=== PATIENT | male | born 1985 | race African-American/Black ===

== ENCOUNTER 2018-04-07 15:48 | Inpatient (IN) | payer OTHER ==
[2018-04-07 16:46] VITALS: BMI 19.2
--- NOTE | 2018-04-07 19:50 | HP ---
CIWA Score - CIWA Score Nausea/Vomitin-Mild Nausea/No Vomiting Muscle Tremors: 2 Anxiety: 2 Agitation: 2 Paroxysmal Sweats: 1-Minimal Palms Moist Orientation: 0-Oriented Tacttile Disturbances: 1-Very Mild Itch/Numbness Auditory Disturbances: 1-Very Mild Visual Disturbances: 1-Very Mild Sensitivity Headache: 1-Very Mild CIWA-Ar Total Score: 12 Admission ROS BHS - HPI Chief Complaint: WITHDRAWAL SYMPTOMS Allergies/Adverse Reactions: Allergies Allergy/AdvReac Type Severity Reaction Status Date / Time No Known Allergies Allergy Verified 04/07/18 19:17 History of Present Illness: 33 Y.O. MAN WITH A HISTORY OF ALCOHOL AND MARIJUANA DEPENDENCE IS HERE FOR DETOX. HE REPORTS HIS MOST RECENT DETOX WAS 2 YEARS AGO AT [facility]. HE ALSO HAS A HISTORY OF OPIOID DEPENDENCE. HE WAS PRESCRIBED SUBOXONE BUT REPORTS HE TAPERED HIMSELF OFF 2 WEEKS AGO. - Ebola screening Have you traveled outside of the country in the last 21 days: No Have you had contact with anyone from an Ebola affected area: No Have you been sick,other than usual withdrawal symptoms: No Do you have a fever: No - Review of Systems Constitutional: Chills, Unintentional Wgt. Loss EENT: reports: Blurred Vision, Double Vision Respiratory: reports: Cough, Shortness of Breath Cardiac: reports: No Symptoms Reported GI: reports: No Symptoms Reported : reports: No Symptoms Reported Musculoskeletal: reports: Back Pain Integumentary: reports: No Symptoms Reported Neuro: reports: Headache Endocrine: reports: No Symptoms Reported Hematology: reports: Anemia (WOLF) Psychiatric: reports: No Sypmtoms Reported, Anxious Other Systems: Reviewed and Negative Patient History - Patient Medical History Hx Anemia: Yes (WOLF ) Hx Asthma: No Hx Chronic Obstructive Pulmonary Disease (COPD): No Hx Cancer: No Hx Cardiac Disorders: No Hx Congestive Heart Failure: No Hx Hypertension: No Hx Hypercholesterolemia: Yes (TAKES OMEGA FISH OIL ) Hx Pacemaker: No HX Cerebrovascular Accident: No Hx Seizures: No Hx Dementia: No Hx Diabetes: No Hx Gastrointestinal Disorders: No Hx Liver Disease: No Hx Genitourinary Disorders: No Hx Sexually Transmitted Disorders: No Hx Renal Disease (ESRD): No Hx Thyroid Disease: No Hx Human Immunodeficiency Virus (HIV): No Hx Hepatitis C: No Hx Depression: Yes Hx Suicide Attempt: No Hx Bipolar Disorder: No Hx Schizophrenia: No - Patient Surgical History Past Surgical History: No Hx Neurologic Surgery: No Hx Cataract Extraction: No Hx Cardiac Surgery: No Hx Lung Surgery: No Hx Breast Surgery: No Hx Breast Biopsy: No Hx Abdominal Surgery: No Hx Appendectomy: No Hx Cholecystectomy: No Hx Genitourinary Surgery: No Hx Section: No Hx Orthopedic Surgery: No Anesthesia Reaction: No - PPD History Previous Implant?: Yes Documented Results: Negative w/o proof PPD to be Administered?: Yes - Reproductive History Patient is a Female of Child Bearing Age (11 -55 yrs old): No - Smoking Cessation Smoking history: Current every day smoker Have you smoked in the past 12 months: Yes Aproximately how many cigarettes per day: 10 Hx Chewing Tobacco Use: No Initiated information on smoking cessation: Yes 'Breaking Loose' booklet given: 04/07/18 - Substance & Tx. History Hx Alcohol Use: Yes Hx Substance Use: Yes Substance Use Type: Alcohol, Marijuana Hx Substance Use Treatment: Yes (DETOX: 2 YEARS AGO AT [facility] ) - Substances Abused Alcohol Route: Oral Frequency: Daily Amount used: liquor- 1 pint, beer- 1 six pack Age of first use: 14 Date of Last Use: 04/07/18 Marijuana/Hashish Route: Smoking Frequency: Daily Amount used: 1/4 oz Age of first use: 14 Date of Last Use: 04/07/18 Family Disease History - Family Disease History Family Disease History: Diabetes: Mother Admission Physical Exam S - Vital Signs Vital Signs: Vital Signs - 24 hr 04/07/18 16:44 Temperature 97.9 F Pulse Rate 90 Respiratory 18 Rate Blood Pressure 115/78 - Physical General Appearance: Yes: Irritable, Anxious HEENTM: Yes: Hearing grossly Normal, Normocephalic, Normal Voice Respiratory: Yes: Chest Non-Tender, Lungs Clear, Normal Breath Sounds, No Respiratory Distress, No Accessory Muscle Use Neck: Yes: Within Normal Limits Breast: Yes: Breast Exam Deferred Cardiology: Yes: Regular Rhythm, Regular Rate Abdominal: Yes: Normal Bowel Sounds, Non Tender Genitourinary: Yes: Other Back: Yes: Normal Inspection Musculoskeletal: Yes: full range of Motion Extremities: Yes: Normal Capillary Refill, Normal Inspection, Normal Range of Motion, Non-Tender Neurological: Yes: Alert, Normal Mood/Affect, Normal Response Integumentary: Yes: Normal Color, Dry, Warm Lymphatic: Yes: Within Normal Limits - Diagnostic (1) Alcohol dependence with uncomplicated withdrawal Current Visit: Yes Status: Chronic (2) Marijuana dependence Current Visit: Yes Status: Chronic (3) Nicotine dependence Current Visit: Yes Status: Chronic (4) Opioid dependence in remission Current Visit: Yes Status: Acute (5) Weight loss, unintentional Current Visit: Yes Status: Acute (6) WOLF (iron deficiency anemia) Current Visit: Yes Status: Chronic Cleared for Admission [facility] - Detox or Rehab [facility] Level of Care: Medically Managed Detox Regimen/Protocol: Librium S Breath Alcohol Content Breath Alcohol Content: 0 Urine Drug Screen - Results Drug Screen Negative: No Urine Drug Screen Results: THC-Marijuana
[2018-04-07] MEDS ORDERED: MAGNESIUM CITRATE 300 ML BOTTLE PO PRN (19:55)
[2018-04-07] MEDS ORDERED: NICOTINE POLACRILEX 2 MG GUM BC PRN (19:55)
[2018-04-07] MEDS ORDERED: chlordiazePOXIDE HCL 25 MG CAPSULE PO PRN (19:55)
[2018-04-07] MEDS ORDERED: MENTHOL/PHENOL 1 EACH UD MM PRN (19:55)
[2018-04-07] MEDS ORDERED: guaiFENesin/D-METHORPHAN HB 10 ML UNIT-DOSE CUPS PO PRN (19:55)
[2018-04-07] MEDS ORDERED: P-EPHED 60MG/TRIPROLIDI 2.5MG TABLET PO PRN (19:55)
[2018-04-07] MEDS ORDERED: ACETAMINOPHEN 325 MG TABLET (FP) PO PRN (19:55)
[2018-04-07] MEDS ORDERED: hydrOXYzine PAMOATE 50 MG CAPSULE (FP) PO PRN (19:55)
[2018-04-07] MEDS ORDERED: MAG HYDROX/AL HYDROX/SIMETH 30 ML UNIT-DOSE CUP PO PRN (19:55)
[2018-04-07] MEDS ORDERED: LOPERAMIDE HCL 2 MG CAPSULE PO PRN (19:55)
[2018-04-07] MEDS ORDERED: MAGNESIUM HYDROX 2400MG/30ML ORAL SUSPENSION 30 ML CUP PO PRN (19:55)
[2018-04-07] MEDS: THIAMINE HCL 100 MG TABLET (FP) PO SCH (21:18)
[2018-04-07] MEDS: chlordiazePOXIDE HCL 25 MG CAPSULE PO SCH (22:00)
[2018-04-07] MEDS ORDERED: MELATONIN 5 MG TABLETS PO PRN (22:00)
[2018-04-07 23:41] LABS: URINE APPEARANCE CLEAR; URINE BILIRUBIN NEGATIVE (<2.0 mg/dL); URINE COLOR LTYELLOW; URINE GLUCOSE (UA) NEGATIVE (NEGATIVE); URINE KETONE NEGATIVE (NEGATIVE); URINE LEUK ESTERASE NEGATIVE (NEGATIVE); URINE NITRITE NEGATIVE (NEGATIVE); URINE PROTEIN NEGATIVE (NEGATIVE); URINE UROBILINOGEN NEGATIVE mg/dL (0.2-1.0)
[2018-04-08] MEDS: chlordiazePOXIDE HCL 25 MG CAPSULE PO SCH ×4 (05:31→22:42)
--- NOTE | 2018-04-08 09:39 | EKG ---
Test Reason : Blood Pressure : / mmHG Vent. Rate : 063 BPM Atrial Rate : 063 BPM P-R Int : 108 ms QRS Dur : 088 ms QT Int : 404 ms P-R-T Axes : 061 085 071 degrees QTc Int : 413 ms SINUS RHYTHM WITH SHORT GA OTHERWISE NORMAL ECG NO PREVIOUS ECGS AVAILABLE Confirmed by VANCE GUILLORY, GABE ([id number]) on 04/08/2018 9:39:28 AM Referred By: Confirmed By:GABE WOODARD MD
[2018-04-08 10:06] LABS: HEMOGLOBIN 13.6 GM/dL (11.7-16.9); MCH 29.2 pg (25.7-33.7); MCHC 34.8 g/dl (32.0-35.9); MEAN PLT VOLUME 7.5 fl (7.5-11.1); PLATELET COUNT 343 K/MM3 (134-434); RBC 4.65 M/mm3 (4.00-5.60); RDW 15.3 % (11.9-15.9); WHITE BLOOD COUNT 5.6 K/mm3 (4.0-10.0)
[2018-04-08] MEDS: PRENATAL VITAMINS W/ FOLIC ACID TABLET (FP) PO SCH (10:08)
[2018-04-08] MEDS: NICOTINE 14 MG/24 HOURS TOPICAL PATCH TD SCH (10:08)
[2018-04-08 11:07] LABS: ALBUMIN 3.3 g/dl (3.4-5.0); ALK PHOS 121 U/L (45-117); ANION GAP 11 MMOL/L (8-16); BILIRUBIN,TOTAL 0.4 mg/dL (0.2-1); BLOOD UREA NITROGEN 11 mg/dL (7-18); CALCIUM 10.1 mg/dL (8.5-10.1); CHLORIDE 101 mmol/L (98-107); CO2 27 mmol/L (21-32); CREATININE 0.9 mg/dL (0.55-1.3); GLUCOSE,RANDOM 99 mg/dL (74-106); POTASSIUM 4.9 mmol/L (3.5-5.1); SGOT/AST 29 U/L (15-37); SGPT/ALT 33 U/L (13-61); SODIUM 140 mmol/L (136-145); TOT PROT 8.8 g/dl (6.4-8.2)
--- NOTE | 2018-04-08 11:24 | PN ---
[facility] CIWA - CIWA Score Nausea/Vomitin-No Nausea/No Vomiting Muscle Tremors: None Anxiety: 1-Mildly Anxious Agitation: 0-Normal Activity Paroxysmal Sweats: No Perspiration Orientation: 0-Oriented Tacttile Disturbances: 0-None Auditory Disturbances: 0-None Visual Disturbances: 0-None Headache: 0-None Present CIWA-Ar Total Score: 1 BHS Progress Note (SOAP) Subjective: Patient c/o mild anxiety. Objective: 04/08/18 11:22 Laboratory Tests 04/07/18 04/08/18 04/08/18 21:15 07:00 07:00 WBC 5.6 RBC 4.65 Hgb 13.6 Hct 39.0 MCV 84.0 MCH 29.2 MCHC 34.8 RDW 15.3 Plt Count 343 MPV 7.5 Sodium Potassium Chloride Carbon Dioxide Anion Gap BUN Creatinine Creat Clearance w eGFR Random Glucose Calcium Total Bilirubin AST ALT Alkaline Phosphatase Total Protein Albumin Urine Color Ltyellow Urine Appearance Clear Urine pH 5.0 Ur Specific [place] 1.013 Urine Protein Negative Urine Glucose (UA) Negative Urine Ketones Negative Urine Blood Negative Urine Nitrite Negative Urine Bilirubin Negative Urine Urobilinogen Negative Ur Leukocyte Esterase Negative RPR Titer HIV 1&2 Antibody Screen Negative HIV P24 Antigen Negative 04/08/18 04/08/18 07:00 07:00 WBC RBC Hgb Hct MCV MCH MCHC RDW Plt Count MPV Sodium 140 Potassium 4.9 Chloride 101 Carbon Dioxide 27 Anion Gap 11 BUN 11 Creatinine 0.9 Creat Clearance w eGFR > 60 Random Glucose 99 Calcium 10.1 Total Bilirubin 0.4 AST 29 ALT 33 Alkaline Phosphatase 121 H Total Protein 8.8 H Albumin 3.3 L Urine Color Urine Appearance Urine pH Ur Specific [place] Urine Protein Urine Glucose (UA) Urine Ketones Urine Blood Urine Nitrite Urine Bilirubin Urine Urobilinogen Ur Leukocyte Esterase RPR Titer Nonreactive HIV 1&2 Antibody Screen HIV P24 Antigen Vital Signs Temperature 96.7 F L 04/08/18 09:15 Pulse Rate 99 H 04/08/18 09:15 Respiratory Rate 16 04/08/18 09:15 Blood Pressure 116/81 04/08/18 09:15 O2 Sat by Pulse Oximetry (%) pe: alert and oriented skin warm and dry car s1s2 resp cta bl psych denies SI/HI, +mildly anxious Assessment: 04/08/18 11:23 withdrawal syndrome Plan: continue detox as ordered encourage oral fluids continue to monitor clinically
[2018-04-08] MEDS: THIAMINE HCL 100 MG TABLET (FP) PO SCH (22:42)
[2018-04-09] MEDS: chlordiazePOXIDE HCL 25 MG CAPSULE PO SCH ×3 (07:10→17:26)
[2018-04-09] MEDS: PRENATAL VITAMINS W/ FOLIC ACID TABLET (FP) PO SCH (10:08)
[2018-04-09] MEDS: NICOTINE 14 MG/24 HOURS TOPICAL PATCH TD SCH (10:08)
--- NOTE | 2018-04-09 10:52 | PN ---
S CIWA - CIWA Score Nausea/Vomitin-No Nausea/No Vomiting Muscle Tremors: None Anxiety: 0-No Anxiety, at Ease Agitation: 1-Slight > Activity Paroxysmal Sweats: No Perspiration Orientation: 0-Oriented Tacttile Disturbances: 0-None Auditory Disturbances: 0-None Visual Disturbances: 0-None Headache: 0-None Present CIWA-Ar Total Score: 1 BHS Progress Note (SOAP) Subjective: PATIENT TOLERATING DETOX WELL. NOTED PACING ON UNIT. Objective: 04/09/18 10:50 Vital Signs Period Temp Pulse Resp BP Sys/Adhikari Pulse Ox Last 24 Hr 97.4 F-99.7 F 80-93 16-18 102-119/61-79 Laboratory Tests 04/07/18 04/08/18 04/08/18 21:15 07:00 07:00 WBC 5.6 RBC 4.65 Hgb 13.6 Hct 39.0 MCV 84.0 MCH 29.2 MCHC 34.8 RDW 15.3 Plt Count 343 MPV 7.5 Sodium Potassium Chloride Carbon Dioxide Anion Gap BUN Creatinine Creat Clearance w eGFR Random Glucose Calcium Total Bilirubin AST ALT Alkaline Phosphatase Total Protein Albumin Urine Color Ltyellow Urine Appearance Clear Urine pH 5.0 Ur Specific [place] 1.013 Urine Protein Negative Urine Glucose (UA) Negative Urine Ketones Negative Urine Blood Negative Urine Nitrite Negative Urine Bilirubin Negative Urine Urobilinogen Negative Ur Leukocyte Esterase Negative RPR Titer Hep C Ab Diagnostic Liver Fibrosis Interp HIV 1&2 Antibody Screen Negative HIV P24 Antigen Negative 04/08/18 04/08/18 04/08/18 07:00 07:00 07:00 WBC RBC Hgb Hct MCV MCH MCHC RDW Plt Count MPV Sodium 140 Potassium 4.9 Chloride 101 Carbon Dioxide 27 Anion Gap 11 BUN 11 Creatinine 0.9 Creat Clearance w eGFR > 60 Random Glucose 99 Calcium 10.1 Total Bilirubin 0.4 AST 29 ALT 33 Alkaline Phosphatase 121 H Total Protein 8.8 H Albumin 3.3 L Urine Color Urine Appearance Urine pH Ur Specific [place] Urine Protein Urine Glucose (UA) Urine Ketones Urine Blood Urine Nitrite Urine Bilirubin Urine Urobilinogen Ur Leukocyte Esterase RPR Titer Nonreactive Hep C Ab Diagnostic 0.1 Liver Fibrosis Interp HIV 1&2 Antibody Screen HIV P24 Antigen PE: AMBULATING ON UNIT AD LALA ALERT AND ORIENTED X 3 SKIN WARM AND DRY CAR S1S2 RESP CTA BL EXT NO EDEMA. Assessment: 04/09/18 10:52 WITHDRAWAL SYNDROME Plan: CONTINUE DETOX ORDERED ENCOURAGE ORAL FLUIDS CONTINUE TO MONITOR CLINICALLY
[2018-04-09] MEDS: chlordiazePOXIDE 5 MG CAPSULE PO SCH (22:12)
[2018-04-09] MEDS: THIAMINE HCL 100 MG TABLET (FP) PO SCH (22:12)
[2018-04-09] MEDS: diphenhydrAMINE HCL 25 MG CAPSULE (FP) PO PRN (22:13)
[2018-04-10] MEDS: chlordiazePOXIDE 5 MG CAPSULE PO SCH ×3 (05:41→17:25)
--- NOTE | 2018-04-10 09:52 | PN ---
S Progress Note (SOAP) Subjective: Mild tremors and interrupted sleep Objective: 04/10/18 09:51 Vital Signs 04/10/18 04/10/18 03:30 06:15 Temperature 96.6 F L Pulse Rate 109 H Respiratory 18 18 Rate Blood Pressure 115/80 Laboratory Last Values WBC 5.6 K/mm3 (4.0-10.0) 04/08/18 07:00 RBC 4.65 M/mm3 (4.00-5.60) 04/08/18 07:00 Hgb 13.6 GM/dL (11.7-16.9) 04/08/18 07:00 Hct 39.0 % (35.4-49) 04/08/18 07:00 MCV 84.0 fl (80-96) 04/08/18 07:00 MCH 29.2 pg (25.7-33.7) 04/08/18 07:00 MCHC 34.8 g/dl (32.0-35.9) 04/08/18 07:00 RDW 15.3 % (11.9-15.9) 04/08/18 07:00 Plt Count 343 K/MM3 (134-434) 04/08/18 07:00 MPV 7.5 fl (7.5-11.1) 04/08/18 07:00 Sodium 140 mmol/L (136-145) 04/08/18 07:00 Potassium 4.9 mmol/L (3.5-5.1) 04/08/18 07:00 Chloride 101 mmol/L (98-107) 04/08/18 07:00 Carbon Dioxide 27 mmol/L (21-32) 04/08/18 07:00 Anion Gap 11 MMOL/L (8-16) 04/08/18 07:00 BUN 11 mg/dL (7-18) 04/08/18 07:00 Creatinine 0.9 mg/dL (0.55-1.3) 04/08/18 07:00 Creat Clearance w eGFR > 60 (>60) 04/08/18 07:00 Random Glucose 99 mg/dL (74-106) 04/08/18 07:00 Calcium 10.1 mg/dL (8.5-10.1) 04/08/18 07:00 Total Bilirubin 0.4 mg/dL (0.2-1) 04/08/18 07:00 AST 29 U/L (15-37) 04/08/18 07:00 ALT 33 U/L (13-61) 04/08/18 07:00 Alkaline Phosphatase 121 U/L (45-117) H 04/08/18 07:00 Total Protein 8.8 g/dl (6.4-8.2) H 04/08/18 07:00 Albumin 3.3 g/dl (3.4-5.0) L 04/08/18 07:00 Urine Color Ltyellow 04/07/18 21:15 Urine Appearance Clear 04/07/18 21:15 Urine pH 5.0 (5.0-8.0) 04/07/18 21:15 Ur Specific [place] 1.013 (1.001-1.035) 04/07/18 21:15 Urine Protein Negative (NEGATIVE) 04/07/18 21:15 Urine Glucose (UA) Negative (NEGATIVE) 04/07/18 21:15 Urine Ketones Negative (NEGATIVE) 04/07/18 21:15 Urine Blood Negative (NEGATIVE) 04/07/18 21:15 Urine Nitrite Negative (NEGATIVE) 04/07/18 21:15 Urine Bilirubin Negative (<2.0 mg/dL) 04/07/18 21:15 Urine Urobilinogen Negative mg/dL (0.2-1.0) 04/07/18 21:15 Ur Leukocyte Esterase Negative (NEGATIVE) 04/07/18 21:15 RPR Titer Nonreactive (NONREACTIVE) 04/08/18 07:00 Hep C Ab Diagnostic 0.1 s/co ratio (0.0-0.9) 04/08/18 07:00 Liver Fibrosis Interp (.) 04/08/18 07:00 HIV 1&2 Antibody Screen Negative 04/08/18 07:00 HIV P24 Antigen Negative 04/08/18 07:00 Labs noted Assessment: 04/10/18 09:52 Withdrawal sx Plan: Continue detox
[2018-04-10] MEDS: PRENATAL VITAMINS W/ FOLIC ACID TABLET (FP) PO SCH (10:53)
[2018-04-10] MEDS: IBUPROFEN 400 MG TABLET (FP) PO PRN ×2 (10:53→17:26)
[2018-04-10] MEDS: NICOTINE 14 MG/24 HOURS TOPICAL PATCH TD SCH (10:53)
[2018-04-10] MEDS: THIAMINE HCL 100 MG TABLET (FP) PO SCH (22:24)
[2018-04-10] MEDS: chlordiazePOXIDE HCL 10 MG CAPSULE PO SCH (22:24)
[2018-04-10] MEDS: diphenhydrAMINE HCL 25 MG CAPSULE (FP) PO PRN (22:25)
[2018-04-11] MEDS: chlordiazePOXIDE HCL 10 MG CAPSULE PO SCH (05:53)
[2018-04-11 06:19] VITALS: BP 106/75; PULSE 82; TEMP 97.6
--- NOTE | 2018-04-11 13:12 | DS ---
[facility] Detox Discharge Summary Admission Date: 04/07/18 Discharge Date: 04/11/18 - History Present History: Alcohol Dependence, Cannabis Dependence, Opioid Dependence Pertinent Past History: Iron deficiency anemia - Physical Exam Results Vital Signs: Vital Signs Temperature 97.6 F 04/11/18 06:19 Pulse Rate 82 04/11/18 06:19 Respiratory Rate 16 04/11/18 06:19 Blood Pressure 106/75 04/11/18 06:19 O2 Sat by Pulse Oximetry (%) Pertinent Admission Physical Exam Findings: Withdrawal symptoms Laboratory Tests 04/07/18 04/08/18 04/08/18 21:15 07:00 07:00 WBC 5.6 RBC 4.65 Hgb 13.6 Hct 39.0 MCV 84.0 MCH 29.2 MCHC 34.8 RDW 15.3 Plt Count 343 MPV 7.5 Sodium Potassium Chloride Carbon Dioxide Anion Gap BUN Creatinine Creat Clearance w eGFR Random Glucose Calcium Total Bilirubin AST ALT Alkaline Phosphatase Total Protein Albumin Urine Color Ltyellow Urine Appearance Clear Urine pH 5.0 Ur Specific [place] 1.013 Urine Protein Negative Urine Glucose (UA) Negative Urine Ketones Negative Urine Blood Negative Urine Nitrite Negative Urine Bilirubin Negative Urine Urobilinogen Negative Ur Leukocyte Esterase Negative RPR Titer Hep C Ab Diagnostic Liver Fibrosis Interp HIV 1&2 Antibody Screen Negative HIV P24 Antigen Negative 04/08/18 04/08/18 04/08/18 07:00 07:00 07:00 WBC RBC Hgb Hct MCV MCH MCHC RDW Plt Count MPV Sodium 140 Potassium 4.9 Chloride 101 Carbon Dioxide 27 Anion Gap 11 BUN 11 Creatinine 0.9 Creat Clearance w eGFR > 60 Random Glucose 99 Calcium 10.1 Total Bilirubin 0.4 AST 29 ALT 33 Alkaline Phosphatase 121 H Total Protein 8.8 H Albumin 3.3 L Urine Color Urine Appearance Urine pH Ur Specific [place] Urine Protein Urine Glucose (UA) Urine Ketones Urine Blood Urine Nitrite Urine Bilirubin Urine Urobilinogen Ur Leukocyte Esterase RPR Titer Nonreactive Hep C Ab Diagnostic 0.1 Liver Fibrosis Interp HIV 1&2 Antibody Screen HIV P24 Antigen Labs reviewed - Treatment Hospital Course: Detox Protocol Followed, Detoxed Safely, Responded well, Discharged Condition Good - Medication Discharge Medications: Ambulatory Orders Buprenorphine/Naloxone [Suboxone 8Mg/2Mg Sl Film -] 1 each SL DAILY 04/07/18 - Diagnosis (1) Uncomplicated opioid dependence Status: Acute (2) Alcohol dependence with uncomplicated withdrawal Status: Acute (3) WOLF (iron deficiency anemia) Status: Chronic (4) Marijuana dependence Status: Chronic (5) Nicotine dependence Status: Chronic Qualifiers: Nicotine product type: cigarettes Substance use status: uncomplicated Qualified Code(s): F17.210 - Nicotine dependence, cigarettes, uncomplicated - AMA Did Patient Leave Against Medical Advice: No (F/U with your PCP within 1-2 weeks)
== END 2018-04-11 09:31 | disposition home or self-care (01) | DRG 773 ==
LOC: YASAS 15:48 → Y3N 18:15
PROC: HZ2ZZZZ Detoxification Services for Substance Abuse Treatment (ICD-10-PCS; principal; 2018-04-07)
DX: F11.23 Opioid dependence with withdrawal (principal); F10.230 Alcohol dependence with withdrawal, uncomplicated; F12.20 Cannabis dependence, uncomplicated; F17.210 Nicotine dependence, cigarettes, uncomplicated; D50.9 Iron deficiency anemia, unspecified; R63.4 Abnormal weight loss; Z68.1 Body mass index [BMI] 19.9 or less, adult
CPT/HCPCS: 36415; 80053; 81003; 85027; 86593; 86803; 87389; 93005; 93010